=== PATIENT | male | born 1955 | race Caucasian/White ===

== ENCOUNTER → 2020-07-24 11:18 | Outpatient (CLI) | payer OTHER, SELFPAY ==
--- NOTE | ~2020-07-24 | XR_ITS ---
EXAMINATION: XR knee RT 3V DATE: 07/24/2020 11:50 INDICATION: Right knee pain TECHNIQUE: Three views of the right knee were obtained. COMPARISON: None. FINDINGS: Alignment is normal. No fracture or osteochondral lesion. There is mild tricompartmental os teoarthritis characterized by tiny marginal osteophytes. A small joint effusion is present. Soft tiss ues are unremarkable. IMPRESSION: 1. Small knee joint effusion. Reviewed, dictated and finalized at location A. ETISER OPERATOR
== END ==
PROVIDERS: PCP Family Medicine; Visit Provider Family Medicine
DX: M25.461 Effusion, right knee (principal)
CPT/HCPCS: 73562

== ENCOUNTER → 2020-09-02 11:03 | Outpatient (CLI) | payer MEDICARE, SELFPAY ==
--- NOTE | ~2020-09-02 | MR_ITS ---
EXAMINATION: MR knee RT wo con DATE: 09/02/2020 12:26 INDICATION: Posterior right knee pain TECHNIQUE: Magnetic resonance imaging (MRI) of the right knee was performed without intravenous contr ast. Sequences included coronal PD-weighted FSE, coronal PD-weighted FS FSE, sagittal T2-weighted FS E, sagittal PD-weighted FS FSE and axial PD weighted fat saturated FSE. COMPARISON: None. FINDINGS: There is a heterogeneous pattern of artifact extensive mild decreased signal extending across images on all sequences but given the otherwise high quality of the images does not significantly limit eval uation. Medial compartment: Medial meniscus is normal. Articular cartilage is normal. Lateral compartment: Small tear extending for approximately 8 mm AP along the inner third of the body of the lateral menis cus which is likely either complex or oblique/parrot beak configuration. There is a deep chondral fis sure beginning at the central aspect of the medial tibial plateau and extending posteriorly to approx imately 1.5 x 1.5 cm region of chondral ulceration and deep fissuring/fibrillation with crabmeat-like appearance underlying the posterior horn of the lateral meniscus. There is mild irregularity to the articular cortex and minimal subarticular edema along the posterior rim of the lateral tibial plateau . Normal cartilage along the weightbearing lateral femoral condyle. Patellofemoral compartment: Focal chondral fissure involving less than 50% the cartilage thickness at the lateral patellar facet. The trochlear cartilage is normal. Ligaments and tendons: Anterior and posterior cruciate ligaments are normal. The medial collateral ligament and fibular jackeline ateral ligament complex are normal. Mild tendinopathy at the distal quadriceps tendon and at the prox imal patellar tendon. The visualized medial and lateral hamstring tendons as well as the iliotibial b and are normal. Fluid: Physiologic amount of fluid in the joint space. No loose osteochondral bodies identified. Small Chandra 's cyst. Osseous/other: Normal marrow signal aside from the previous noted minimal subarticular edema at the posterior latera l tibial plateau. No fracture or pathologic marrow replacing process. There is edema in the superfici al suprapatellar fat pad which can be seen with fat pad impingement syndrome. There is a suprapatella r plical band. IMPRESSION: 1. Small tear either complex or oblique/ parrot beak configuration at the body of the lateral meniscu s. 2. 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 3. Edema in the superficial suprapatellar fat pad consistent with fat pad impingement syndrome. 4. Small Chandra's cyst. Reviewed, dictated and finalized at location B. ICAL ENGRAVER IMPRESSION: 1. Small tear either complex or oblique/ parrot beak configuration at the body of the lateral meniscus. 2. 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 3. Edema in the superficial suprapatellar fat pad consistent with fat pad impin gement syndrome. 4. Small Chandra's cyst.
== END ==
PROVIDERS: Visit Provider Nurse Practitioner Family
DX: M25.561 Pain in right knee (principal); G89.29 Other chronic pain; S83.281A Other tear of lateral meniscus, current injury, right knee, initial encounter; M94.261 Chondromalacia, right knee; M79.89 Other specified soft tissue disorders; M71.21 Synovial cyst of popliteal space [Baker], right knee
CPT/HCPCS: 73721

== ENCOUNTER 2020-09-12 08:38 | Outpatient (CLI) | payer MEDICARE, SELFPAY ==
--- NOTE | 2020-09-12 08:41 | ECG_ITS ---
Measurements Intervals [place] Rate: 63 P: -87 NM: 213 QRS: 37 QRSD: 101 T: 23 QT: 368 QTc: 377 Interpretive Statements SINUS OR ECTOPIC ATRIAL RHYTHM BORDERLINE AV CONDUCTION DELAY BORDERLINE ECG Electronically Signed On 09-12-2020 10:05:39 ADVANCED MANUFACTURING ENGINEER by Aaron Camacho D.O.
== END 2020-09-12 08:39 | disposition home or self-care (01) ==
LOC: ANHSURGERY 08:41
PROVIDERS: PCP Family Medicine; Visit Provider Orthopaedic Surgery
DX: Z01.810 Encounter for preprocedural cardiovascular examination (principal); I10 Essential (primary) hypertension
CPT/HCPCS: 93005

== ENCOUNTER 2020-09-16 09:32 | Outpatient (CLI) | payer MEDICARE, SELFPAY ==
[2020-09-16 19:31] LABS: SARS-CoV-2 RNA PCR Negative
== END 2020-09-16 09:33 | disposition home or self-care (01) ==
PROVIDERS: PCP Family Medicine; Visit Provider Orthopaedic Surgery
DX: Z01.812 Encounter for preprocedural laboratory examination (principal); Z11.59 Encounter for screening for other viral diseases
CPT/HCPCS: 87635; C9803; U0003

== ENCOUNTER 2020-09-20 00:34 | Day surgery (SDC) | payer MEDICARE, SELFPAY ==
[2020-09-11 14:08] VITALS: BMI 30.6
--- NOTE | 2020-09-18 13:47 | WPDANESEPPF ---
Anes - Initial Pre Proc Eval Procedure: Operation Date: 09/20/20 07:30 Proposed Procedures p Right Knee Arthroscopy, Proceed As Indicated - Luis Thompson MD Date/Time: 09/18/20 13:47 Surgeon: Luis Thompson MD Pre Op Diagnosis: left medial meniscus tear Patient Data Age: 65 Gender: M Height: 1.83 m Weight: 102.5 kg Allergies Allergy/AdvReac Type Severity Reaction Status Date / Time No Known Allergies Allergy Verified 09/20/20 06:03 Home Medications Medication Instructions Recorded Confirmed Type aspirin 81 mg tablet,delayed 81 mg PO DAILY 07/17/20 09/20/20 History release calcium polycarbophil 625 mg tablet 1,250 mg PO DAILY 07/17/20 09/20/20 History lactobacillus combination no.9 4 4,000 mmu cells PO DAILY 07/17/20 09/20/20 History billion cell capsule multivitamin 1 tablet PO DAILY 07/17/20 09/20/20 History atorvastatin 40 mg tablet 40 mg PO DAILY #90 tablet 08/08/20 09/20/20 Rx carvedilol 12.5 mg tablet 12.5 mg PO Q12H #180 tablet 08/08/20 09/20/20 Rx lisinopril 10 mg tablet 10 mg PO DAILY #90 tablet 08/08/20 09/20/20 Rx omeprazole 20 mg capsule,delayed 20 mg PO DAILY #90 cap 08/08/20 09/20/20 Rx release acetaminophen 500 mg tablet 500 mg PO Q6H PRN 08/24/20 09/11/20 History ibuprofen 800 mg tablet 800 mg PO PRN PRN 08/24/20 09/11/20 History chlorhexidine gluconate 4 % 1 applic TOPICAL ONCE #237 ml 09/11/20 09/11/20 Rx topical liquid tamsulosin [Flomax] 0.4 mg PO QAM 09/20/20 09/20/20 History Patient hx anesthesia problems: none Family hx anesthesia problems: none PMFSH Past Medical History Medical History (Updated 09/18/20 @ 13:47 by Christiano Delgado MD) Chandra's cyst of knee BPH NOS w/o ur obs/LUTS CAD in [place] artery Dyslipidemia Encounter for general adult medical examination without abnormal findings Essential (primary) hypertension GERD without esophagitis History of colon polyps History of shingles Medial meniscus tear Obesity Right knee pain Surgical History Surgical History History of appendectomy 1977 History of colonoscopy with polypectomy (~05/2019) Repeat in 5 yrs (Dr De León) Stented coronary artery (~02/2006) Family History Family History Father Hypertension Mother Hypertension Other High cholesterol Social History Social History Social History: Retired, Smoking packs per day: 1 Smoking cigarettes per day: 20.0 Years smoked: 20 Smoking pack-years: 20.00 Smoking status: Former smoker Tobacco type: cigarettes Second hand tobacco smoke exposure: No Smoking end date: 09/22/93 Alcohol intake: current Drinks per week: 3 Substance use: never Substance use type: does not use Living arrangements: with family Gender identity (if verbalized by the patient): Male Spiritual care concerns: No Anes - Eval Final PreProcedure Day of Procedure 09/18/20 13:47 Patient weight: obese Heart: regular rate and rhythm Lungs: clear to auscultation and normal air movement Airway: Mallampati scale class II Neurological: alert and oriented Last oral intake: >/= 8 hours ASA classification: III Emergent: no Anesthetic plan: proceed Anesthesia type and monitoring: general LMA Informed Consent: The patient's anesthetic plan and its attendant risks and benefits were discussed with the patient/family/POA. Questions were solicited and answers provided to the satisfaction of the patient/family/POA.
[2020-09-20] MEDS: ACETAMINOPHEN 500 MG TABLET 1000 MG PO (06:45)
[2020-09-20] MEDS: CELECOXIB 200 MG CAPSULE PO (06:45)
[2020-09-20] MEDS: LACTATED RINGERS 1,000 ML 30 ML IV CONT (06:46)
[2020-09-20 07:09] VITALS: BP 127/76; PULSE 58; RESP 16; TEMP 36.8; O2SAT 99
--- NOTE | 2020-09-20 07:14 | WPDHPUPDATE1 ---
History and Physical Update Update Date/Time: 09/20/20 07:14 History and Physical has been reviewed, including an updated exam of the patient. There are NO changes in the patient's condition. Risks, benefits, and alternatives have been discussed and questions answered. Patient agrees to proceed with procedure.
[2020-09-20] MEDS: ceFAZolin 2 GM/D5W 50 ML 2 GM/50 ML BAG IVPB (07:22)
[2020-09-20] MEDS: BUPIVACAINE HCL 0.5% PF 30 ML VIAL INFILTRATE (07:49)
--- NOTE | 2020-09-20 08:23 | PM.PROC ---
Procedure Note - Detailed Date of procedure: 09/20/20 Pre-op diagnosis: right lateral meniscus tear Post-op diagnosis: same Procedure performed: RIGHT KNEE SCOPE WITH PARTIAL LATERAL MENISCECTOMY AND MAJOR SYNOVECTOMY Description of procedure: PATIENT WAS TAKEN TO THE OR. RIGHT LEG WAS PREPPED AND DRAPED STERILE. TROCARS WERE PLACED IN THE USUAL FASHION. CAMERA WAS INTRODUCED. THERE WAS MILD CHONDROMALACIA TO THE PATELLA FEMORAL JOINT. THERE WAS SYNOVITIS IN ALL COMPARTMENTS. THE MEDIAL COMPARTMENT SHOWED CHONDROMALACIA TO THE MED FEMORAL CONDYLE. A SHAVER WAS USED TO PREFORM A CHONDROPLASTY. THERE WAS NO MEDIAL MENISCUS TEAR. THE ACL WAS INTACT. THE LATERAL MENISCUS WAS TORN AND UNDERWENT RESECTION OF ABOUT 15 % THE LAT FEMORAL CONDYLE UNDERWENT CHONDROPLASTY. A SYNOVECTOMY WAS PREFORMED. THE PATELLO FEMORAL JOINT UNDERWENT CHONDROPLASTY. SYNOVECTOMY WAS PREFORMED IN THE SUPERIOR MEDIAL COMPARTMENT. THE WOUNDS WERE APPROXIMATED WITH 4.0 NYLON. STERILE DRESSING WAS APPLIED. PATIENT WAS EXTUBATED. Anesthesia: GLMA Surgeon: Luis Thompson MD Estimated blood loss (mL): 5 Complications: No immediate complications Condition: stable Disposition: PACU
[2020-09-20 08:25] VITALS: BP 157/88; PULSE 65; RESP 12; TEMP 36.1; O2SAT 99
[2020-09-20 08:40] VITALS: BP 144/68; PULSE 63; RESP 13; O2SAT 99
[2020-09-20 08:55] VITALS: BP 152/76; PULSE 61; RESP 16; O2SAT 96
[2020-09-20 09:10] VITALS: BP 153/85; PULSE 64; RESP 14
[2020-09-20] MEDS: oxyCODONE HCL (*CRX) 5 MG TAB IR PO (09:27)
[2020-09-20 09:40] VITALS: BP 158/81; PULSE 60; RESP 16
== END 2020-09-20 10:08 | disposition home or self-care (01) ==
PROVIDERS: PCP Family Medicine; Visit Provider Orthopaedic Surgery
PROC: (CPT 29870; principal; 2020-09-20 07:30)
DX: M23.361 Other meniscus derangements, other lateral meniscus, right knee (principal); M65.861 Other synovitis and tenosynovitis, right lower leg; M94.261 Chondromalacia, right knee; I10 Essential (primary) hypertension; E78.5 Hyperlipidemia, unspecified; K21.9 Gastro-esophageal reflux disease without esophagitis; I25.10 Atherosclerotic heart disease of native coronary artery without angina pectoris; N40.0 Benign prostatic hyperplasia without lower urinary tract symptoms; Z79.82 Long term (current) use of aspirin; E66.9 Obesity, unspecified; Z68.31 Body mass index [BMI] 31.0-31.9, adult; Z95.5 Presence of coronary angioplasty implant and graft; Z87.891 Personal history of nicotine dependence
CPT/HCPCS: 29881; 29876; A9270; J0360; J0690; J1100; J2405; J2704; J3010; J7120

== ENCOUNTER 2021-08-30 07:35 | Outpatient (CLI) | payer MEDICARE, SELFPAY ==
--- NOTE | ~2021-08-30 | US_ITS ---
EXAMINATION: US aorta [facility] DATE: 08/30/2021 08:08 INDICATION: Abdominal aortic aneurysm screening, history of hypertension, hypercholesterolemia TECHNIQUE: Grayscale, color Doppler, and pulsed Doppler images of the aorta and common iliac arteries were obtained. COMPARISON: None. FINDINGS: Maximum vascular dimensions are as follows: Proximal aorta: 2.3 cm Mid aorta: 2.2 cm Distal aorta: 2.0 cm Right common iliac artery: 1.5 cm Left common iliac artery: 1.6 cm There is no evidence of abdominal aortic aneurysm. IMPRESSION: 1. No sonographically detected abdominal aortic aneurysm. Reviewed, dictated and finalized at location A. RINTENDENT CONCRETE MIXING PLANT
== END 2021-08-30 07:36 | disposition home or self-care (01) ==
LOC: ANHIMG 07:35
PROVIDERS: PCP Family Medicine; Visit Provider Nurse Practitioner Family
DX: Z13.6 Encounter for screening for cardiovascular disorders (principal); Z87.891 Personal history of nicotine dependence
CPT/HCPCS: 76706

== ENCOUNTER 2023-03-13 09:45 | Outpatient (CLI) | payer MEDICARE, SELFPAY ==
[2023-03-13 19:24] LABS: Alanine Aminotransferase 21 U/L (6-50); Albumin Level 3.9 g/dL (3.5-5.1); Alkaline Phosphatase 72 U/L (38-126); Anion Gap 5 mmol/L (8-16); Aspartate Amino Transferase 32 U/L (17-59); Bilirubin,Total 0.5 mg/dL (0.2-1.3); Blood Urea Nitrogen 13 mg/dL (9-20); Calcium 8.4 mg/dL (8.4-10.2); Carbon Dioxide 31 mmol/L (22-30); Chloride 103 mmol/L (98-107); Cholesterol 152 mg/dL (0-200); Estimated Glomerular Filt Rate > 60; Glucose 82 mg/dL (65-110); HDL Direct 39 mg/dL; Potassium 4.3 mmol/L (3.4-5.0); Sodium 139 mmol/L (137-145); Triglycerides 128 mg/dL (<150)
[2023-03-13 19:35] LABS: LDL Cholesterol Direct 81 mg/dL
[2023-03-13 19:50] LABS: Basophils Percent Auto 0.3 % (0.2-1.2); Eosinophils Absolute Auto 0.2 K/mm3 (0-0.3); Hematocrit 41.2 % (42.0-52.0); Hemoglobin 13.8 g/dL (14.0-18.0); Immature Granulocyte Absolute 0.01 K/mm3 (0.00-0.031); Immature Granulocyte Percent A 0.1 % (0-0.5); Lymphocytes Absolute Auto 1.31 K/mm3 (0.9-3.2); Lymphocytes Percent Auto 18.9 % (18.3-44.2); Mean Corpuscular HGB Conc 33.5 g/dl (32-36); Mean Corpuscular Volume 89.6 fl (80-100); Mean Platelet Volume 9.9 fl (7.4-10.4); Monocytes Absolute Auto 0.7 K/mm3 (0.1-0.6); Monocytes Percent Auto 10.1 % (2.6-8.5); Neutrophils Absolute Auto 4.7 K/mm3 (1.3-6.7); Neutrophils Percent Auto 67.6 % (45.5-73.1); Platelet Count Result 230 k/mm3 (150-375); White Blood Count 6.9 K/mm3 (4.5-10.0)
[2023-03-13 19:52] LABS: Thyroid Stimulating Hormone 0.876 uIU/mL (0.465-4.680)
[2023-03-13 20:41] LABS: Hemoglobin A1C 5.2 % (<5.7)
[2023-03-13 20:53] LABS: Hepatitis C Virus Antibody Negative (Negative)
== END 2023-03-13 09:46 | disposition home or self-care (01) ==
LOC: ANHGOSHLAB 09:47
PROVIDERS: PCP Family Medicine; Visit Provider Nurse Practitioner Family
DX: Z11.59 Encounter for screening for other viral diseases (principal); I10 Essential (primary) hypertension; Z13.29 Encounter for screening for other suspected endocrine disorder; E78.5 Hyperlipidemia, unspecified; Z13.1 Encounter for screening for diabetes mellitus
CPT/HCPCS: 36415; 80053; 80061; 83036; 84443; 85025; 86803

== ENCOUNTER 2023-09-19 09:33 | Outpatient (CLI) | payer MEDICARE, SELFPAY ==
[2023-09-19 13:27] LABS: Basophils Percent Auto 0.3 % (0.2-1.2); Eosinophils Absolute Auto 0.1 K/mm3 (0-0.3); Eosinophils Percent Auto 1.5 % (0-4.4); Hematocrit 45.1 % (42.0-52.0); Hemoglobin 15.1 g/dL (14.0-18.0); Immature Granulocyte Absolute 0.01 K/mm3 (0.00-0.031); Immature Granulocyte Percent A 0.2 % (0-0.5); Lymphocytes Absolute Auto 1.58 K/mm3 (0.9-3.2); Lymphocytes Percent Auto 25.5 % (18.3-44.2); Mean Corpuscular HGB Conc 33.5 g/dl (32-36); Mean Corpuscular Hemoglobin 29.8 pg (26-34); Mean Corpuscular Volume 89.1 fl (80-100); Monocytes Absolute Auto 0.6 K/mm3 (0.1-0.6); Neutrophils Absolute Auto 3.9 K/mm3 (1.3-6.7); Neutrophils Percent Auto 62.5 % (45.5-73.1); Platelet Count Result 226 k/mm3 (150-375); Red Blood Count 5.06 M/mm3 (4.6-6.20); Red Cell Distribution Width 12.4 % (11.5-14.5); White Blood Count 6.2 K/mm3 (4.5-10.0)
[2023-09-19 13:39] LABS: LDL Cholesterol Direct 79 mg/dL
[2023-09-19 13:57] LABS: Prostate Specific Antigen 6.7 ng/mL (< OR = 4.0)
[2023-09-19 14:21] LABS: Alanine Aminotransferase 22 U/L (6-50); Albumin Level 4.1 g/dL (3.5-5.1); Alkaline Phosphatase 83 U/L (38-126); Anion Gap 6 mmol/L (8-16); Aspartate Amino Transferase 36 U/L (17-59); Bilirubin,Total 0.5 mg/dL (0.2-1.3); Blood Urea Nitrogen 16 mg/dL (9-20); Carbon Dioxide 28 mmol/L (22-30); Chloride 105 mmol/L (98-107); Cholesterol 154 mg/dL (0-200); Estimated Glomerular Filt Rate > 60; Glucose 89 mg/dL (65-110); HDL Direct 38 mg/dL; Potassium 4.4 mmol/L (3.4-5.0); Sodium 139 mmol/L (137-145); Triglycerides 151 mg/dL (<150)
[2023-09-19 14:46] LABS: Vitamin D 25 Hydroxy 37.6 ng/mL
[2023-09-19 15:35] LABS: Hemoglobin A1C 5.6 % (<5.7)
== END 2023-09-19 09:34 | disposition home or self-care (01) ==
LOC: ANHGOSHLAB 09:35
PROVIDERS: PCP Family Medicine; Visit Provider Nurse Practitioner Family
DX: Z13.29 Encounter for screening for other suspected endocrine disorder (principal); E55.9 Vitamin D deficiency, unspecified; R73.03 Prediabetes; Z12.5 Encounter for screening for malignant neoplasm of prostate; N40.0 Benign prostatic hyperplasia without lower urinary tract symptoms; E53.8 Deficiency of other specified B group vitamins; I10 Essential (primary) hypertension; E78.5 Hyperlipidemia, unspecified
CPT/HCPCS: 36415; 80053; 80061; 82306; 82607; 83036; 84153; 84443; 85025; G0103

== ENCOUNTER 2024-12-07 10:57 | Outpatient (CLI) | payer MEDICARE, SELFPAY ==
--- OUTSIDE RECORDS SUMMARY | 2024-12-07 12:35 | XMS_ITS | Encounter Summary ---
Author Organization [facility] Address [address] [place] [address] Phone Care Team Providers Care Head Lineman Name Role Phone Oanh Rose MD Primary Care Provider Encounter Details Date Type Department Care Team (Late st Contact Info) Description 10/13/2024 Results Follow-Up [facility] - Gastroenterology [facility] [place] [address] Tati Min, RN [place] Social History Tobacco Use Types Packs/Day Years Used Date Smoking Tobacco: Former Cigarettes Smokeless Tobacco: Never Alcohol Use Standard Drinks/Week Comments Yes 1 (1 standard drink = 0.6 oz pur e alcohol) Sex and Gender Information Value Date Recorded Sex Assigned at Not on file Legal Sex Male 9:19 PM CDT Gender Identity Not on file Sexual Orientation Not on file documented as of this encounter Plan of Treatment Not on file documented as of this encounter Visit Diagnoses Not on filedocumented in this encounter Care Teams Head Lineman Relationship Specialty Start Date End Date Oanh Rose MD PCP - General Family Medicine 06/24/19 documented as of this encounter
--- OUTSIDE RECORDS SUMMARY | 2024-12-07 12:35 | XMS_ITS | Clinical Summary ---
Author Organization [facility] Address [address] [place] [id number] Care Team Providers Care Environmental Emergencies Planner Name Role Phone Jacoby Banuelos MD Primary Care Provider [phone] Social History Tobacco Use Types Packs/Day Years Used Date Smoking Tobacco: Never Assessed Sex and Gender Information Value Date Recorded Sex Assigned at Not on file Legal Sex Male 6:08 PM CDT Gender Identity Not on file Sexual Orientation Not on file Plan of Treatment Health Maintenance Due Date Last Done Comments Colorectal Cancer Screening Colonoscopy (10 Years) 1953 Hepatitis C 1971 DTaP, Tdap and Td Vaccines ( 1 - Tdap) 02/05/1972 Zoster Vaccines (1 of 2) 2003 Pneumococcal Vaccine: 65+ Ye ars (1 of 1 - PCV) 2018 COVID-19 Vaccine ( - 2023-2 5 season) 2024 Influenza Adult (#1) 2024 RSV Immunization or 60+ Years (1 - 1-dose 75+ series) 02/05/2028 Meningococcal B Vaccine Aged Out No l onger eligible based on patient's age to complete this topic Meningococcal Vaccine Aged Out No stefanie nimisha eligible based on patient's age to complete this topic RSV Immunizations Under 20 Months Aged Out No longer eligible based on patient's age to complete this topic Care Teams Environmental Emergencies Planner Relationship Specialty Start Date End Date Jacoby Banuelos MD [address] [place] [id number] PCP - General 01/07/16
--- OUTSIDE RECORDS SUMMARY | 2024-12-07 12:35 | XMS_ITS | Clinical Summary ---
Author Organization [facility] Address [address] [address] Phone Care Team Providers Care Associate Name Role Phone Oanh Rose MD Primary Care Provider Allergies No known active allergies Medications atorvastatin (LIPITOR) 40 MG Tablet Take 40 mg by mouth daily. Active tamsulosin (FLOMAX) 0.4 MG Capsule Take 0.4 mg by mouth daily. Active lisinopril (PRINIVIL, ZESTRIL) 10 MG Tablet Take 10 mg by mouth every morning. Active carvedilol (COREG) 12.5 MG Tablet Take 12.5 mg by mouth 2 times daily. Active Multiple Vitamin (MULTI-VITAMIN PO) Take by mouth daily. Active Calcium Polycarbophil (FIBER-CAPS PO) Take by mouth daily. Active aspirin EC 81 MG Tablet Delayed Response Take 81 mg by mouth daily. Active Omeprazole 20 MG Tablet Delayed Response Take by mouth daily. Active FAMOTIDINE PO Take 20 mg by mouth daily. Active Encounters Date Type Department Care Team Description 10/13/2024 Results Follow-Up [facility] - Gastroenterology - [place] [address] [place] [address] Tati Min RN 10/01/2024 9:30 AM IT INFRASTRUCTURE MANAGER - 10/01/2024 10:00 AM IT INFRASTRUCTURE MANAGER Surgery [facility] Periop [address] [place] [address] Corey Mar MD COLONOSCOPY-sigmoi d colon polypectomy x1 jumbo forceps-rectal polypectomy x3 jumbo forceps 10/01/2024 8:55 AM IT INFRASTRUCTURE MANAGER [facility] [address] [place] [address] Camden Child, VENUE MANAGER, ADDING MACHINE MECHANIC 10/01/2024 8:30 AM IT INFRASTRUCTURE MANAGER Ancillary [facility] Main [address] [place] [address] Corey Mar MD 10/01/2024 8:21 AM IT INFRASTRUCTURE MANAGER - 10/01/2024 10:30 AM IT INFRASTRUCTURE MANAGER [facility] Preop[facility]Pacu II [address] [place] [address] Corey Mar MD Discharge Disposition: Discharged to home or Selfcare 10/01/2024 Travel 09/23/2024 Telephone [facility] - Gastroenterology [facility] [address] [place] [address] Corey Mar MD 09/17/2024 Travel from Last 3 Months Family History Medical History Relation Name Comments Heart Disease Father Heart Disease Mother Relation Name Status Comments Father Mother Social History Tobacco Use Types Packs/Day Years Used Date Smoking Tobacco: Former Cigarettes Smokeless Tobacco: Never Tobacco Cessation:Counseling Given: Not Answered Alcohol Use Standard Drinks/Week Comments Yes 1 (1 standard drink = 0.6 oz pur e alcohol) Sex and Gender Information Value Date Recorded Sex Assigned at Not on file Legal Sex Male 9:19 PM CDT Gender Identity Not on file Sexual Orientation Not on file Last Filed Vital Signs Vital Sign Reading Time Taken Comments Blood Pressure 121/88 10/01/2024 9:55 AM IT INFRASTRUCTURE MANAGER Pulse 63 10/01/2024 9:55 AM IT INFRASTRUCTURE MANAGER Temperature 36 C (96.8 F) 10/01/2024 9:55 AM IT INFRASTRUCTURE MANAGER Respiratory Rate 17 10/01/2024 9:55 AM IT INFRASTRUCTURE MANAGER Oxygen Saturation 96% 10/01/2024 9:55 AM IT INFRASTRUCTURE MANAGER Inhaled Oxygen Concentration - - Weight 99.8 kg (220 lb) 10/01/2024 8:45 AM IT INFRASTRUCTURE MANAGER Height 182.9 cm (6') 10/01/2024 8:45 AM IT INFRASTRUCTURE MANAGER Body Mass Index 29.84 10/01/2024 8:45 AM IT INFRASTRUCTURE MANAGER Plan of Treatment Health Maintenance Due Date Last Done Comments Hepatitis C Virus (HCV) Screening 1955 TdaP Immunization 1955 Cologuard 2003 Immunochemical Fecal Occult Blood 2003 AAA Screening Ultrasound 2018 Zoster Immunization (2 of 2) 10/23/2020 08/28/2020 Influenza Immunization (#1) 05/23/202407/23, 09/12/2022, 07/10/2021, Additional history exists SARS-COV-2 Immunization ( season) 2024 08/09/2023, 08/14/2021, 12/12/2020, Additional history exists Colonoscopy 10/01/2027 10/01/2024, 06/17/2019 Colorectal Cancer Screening 10/01/2027 Respiratory Syncytial Virus (RSV) Immunization (Adult) (1 - 1-dose 75+ series) 02/05/2028 10/01/2024, 06/17/2019 Pneumococcal Immunization (50+ years) Completed 09/12/2022, 08/28/2020 Pneumococcal Immunization Combined Discontinued 09/12/2022, 08/28/2020 Hepatitis B Immunization Aged Out No longer eligible based on patient's age to complete this topic Meningococcal Immunization (ACWY) Aged Out No longer eligible based on patient's age to complete this topic Rotavirus Immunization Aged Out No lo nger eligible based on patient's age to complete this topic Procedures Procedure Name Priority Date/Time Associated Diagnosis Comments PATHOLOGY SURGICAL Routine 10/01/2024 9: 13 AM IT INFRASTRUCTURE MANAGER COLONOSCOPY 10/01/2024 8:55 AM IT INFRASTRUCTURE MANAGER COLONOSCOPY-sigmoi d colon polypectomy x1 jumbo forceps-rectal polypectomy x3 jumbo forceps Special Needs Dx polyps GI IMAGING - COLONOSCOPY Routine 10/01/2024 8:26 AM IT INFRASTRUCTURE MANAGER HM COLONOSCOPY Routine 06/17/2019 from Last 3 Months or Most Recently Relevant to Health Maintenance Results * Pathology Surgical (10/01/2024 9:13 AM IT INFRASTRUCTURE MANAGER) Case Report Surgical Pathology Report Case: [id number] Authorizing Provider: Corey Mar MD Collected: 10/01/2024 09:13 AM Ordering Location: [facility] Received: 10/01/2024 10:10 AM [facility] Main Pathologist: Mo Marcial MD PhD Specimens: A) - Colon, sigmoid colon polyp x1 B) - Rectum, rectal polyp x3 10/04/2024 9:47 AM IT INFRASTRUCTURE MANAGER [facility] FINAL DIAGNOSIS A. Sigmoid colon polyp, polypectomy: - Tubular adenoma B. Rectal polyp, polypectomy: - Tubular adenoma 10/04/2024 9:47 AM IT INFRASTRUCTURE MANAGER [facility] at 0947 IT INFRASTRUCTURE MANAGER Pre-Operative Diagnosis HISTORY OF COLON POLYPS 10/04/2024 9:47 AM IT INFRASTRUCTURE MANAGER [facility] Gross Description A. sigmoid colon polyp x1 The specimen presents in two formalin containers for gross and microscopic examination labeled with the patient's name, Maury Cam. Part A is designated as sigmoid colon polyp. In formalin is a single small fragment of pink-julio tissue measuring 0.2 cm in total dimensions. This specimen is submitted in its entirety in cassette A1. B. rectal polyp x3 Part B is designated as rectal polyp. The specimen consists of four small fragments of pink-julio tissue measuring 0.2 cm in total dimensions for each. The specimen is submitted in its entirety in cassette B1. Total time of fixation is 60 hours, 26 minutes. MH/sb 10/04/2024 9:47 AM IT INFRASTRUCTURE MANAGER [facility] Microscopic Description Microscopic examination was performed which supports the final diagnosis. All control tissues stained appropriately. 10/04/2024 9:47 AM IT INFRASTRUCTURE MANAGER [facility] Tissue COLON STRUCTURE / Unknown 10/01/2024 9:13 AM IT INFRASTRUCTURE MANAGER 10/01/2024 10:10 AM IT INFRASTRUCTURE MANAGER Tissue specimen (specimen) RECTUM STRUCTURE / Unknown 10/01/2024 9:20 AM IT INFRASTRUCTURE MANAGER 10/01/2024 10:10 AM IT INFRASTRUCTURE MANAGER Corey Mar MD PATHOLOGY/CYTOLOGY ORDERA BLES Final Result [facility] [address] [place] [address] * GI IMAGING - COLONOSCOPY (10/01/2024 8:26 AM IT INFRASTRUCTURE MANAGER) Corey Mar MD IMG DIAGNOSTIC ORDERABLES Final Result * COLONOSCOPY (06/17/2019) Shai De León DO PROCEDURE/MINOR SURGICAL ORDERA BLES Final Result from Last 3 Months or Most Recently Relevant to Health Maintenance Insurance MEDICARE C [employer] Care Teams Associate Relationship Specialty Start Date End Date Oanh Rose MD PCP - General Family Medicine 06/24/19
[2024-12-07 13:20] LABS: Basophils Percent Auto 0.3 % (0.2-1.2); Eosinophils Absolute Auto 0.1 K/mm3 (0-0.3); Eosinophils Percent Auto 1.3 % (0-4.4); Hematocrit 41.9 % (42.0-52.0); Hemoglobin 14.1 g/dL (14.0-18.0); Immature Granulocyte Absolute 0.01 K/mm3 (0.00-0.031); Immature Granulocyte Percent A 0.2 % (0-0.5); Lymphocytes Absolute Auto 1.53 K/mm3 (0.9-3.2); Lymphocytes Percent Auto 23.9 % (18.3-44.2); Mean Corpuscular HGB Conc 33.7 g/dl (32-36); Mean Corpuscular Hemoglobin 29.6 pg (26-34); Mean Corpuscular Volume 87.8 fl (80-100); Mean Platelet Volume 10.1 fl (7.4-10.4); Monocytes Absolute Auto 0.8 K/mm3 (0.1-0.6); Monocytes Percent Auto 11.7 % (2.6-8.5); Neutrophils Percent Auto 62.6 % (45.5-73.1); Platelet Count Result 245 k/mm3 (150-375); Red Blood Count 4.77 M/mm3 (4.6-6.20); White Blood Count 6.4 K/mm3 (4.5-10.0)
[2024-12-07 13:34] LABS: Alanine Aminotransferase 23 U/L (6-50); Albumin Level 4.2 g/dL (3.5-5.1); Alkaline Phosphatase 79 U/L (38-126); Anion Gap 7 mmol/L (4-12); Aspartate Amino Transferase 39 U/L (17-59); Bilirubin,Total 0.9 mg/dL (0.2-1.3); Blood Urea Nitrogen 13 mg/dL (9-20); Calcium 9.2 mg/dL (8.4-10.2); Carbon Dioxide 28 mmol/L (22-30); Chloride 105 mmol/L (98-107); Cholesterol 141 mg/dL (0-200); Estimated Glomerular Filt Rate > 60; Glucose 102 mg/dL (65-110); HDL Direct 46 mg/dL; Potassium 4.8 mmol/L (3.4-5.0); Sodium 140 mmol/L (137-145); Triglycerides 81 mg/dL (<150)
[2024-12-07 13:46] LABS: LDL Cholesterol Direct 68 mg/dL
[2024-12-07 13:57] LABS: Vitamin D 25 Hydroxy 37.3 ng/mL
[2024-12-07 14:03] LABS: Prostate Specific Antigen 8.5 ng/mL (< OR = 4.0)
[2024-12-07 14:11] LABS: Thyroid Stimulating Hormone Reflex 0.665 uIU/mL (0.465-4.68)
== END 2024-12-07 10:58 | disposition home or self-care (01) ==
PROVIDERS: PCP Family Medicine; Visit Provider Nurse Practitioner Family
DX: Z12.5 Encounter for screening for malignant neoplasm of prostate (principal); I10 Essential (primary) hypertension; E55.9 Vitamin D deficiency, unspecified; E78.5 Hyperlipidemia, unspecified
CPT/HCPCS: 36415; 80053; 80061; 82306; 84153; 84443; 85025; G0103